=== PATIENT | female | born 1980 | race Caucasian/White ===

== ENCOUNTER 2023-11-11 01:33 | Day surgery (SDC) | payer OTHER, SELFPAY ==
[2023-10-30 14:12] VITALS: BMI 62.1
--- NOTE | 2023-11-08 09:47 | SUR.PREOP ---
Patient called regarding upcoming procedure. Reviewed preop instructions, appointment times, and procedure prep.
[2023-11-11 10:43] VITALS: BP 152/80; PULSE 105; RESP 18; TEMP 36.2; O2SAT 100
--- NOTE | 2023-11-11 11:05 | PM.HPGS ---
History of Present Illness History of Present Illness Consent: Risks, benefits, and alternatives have been discussed and questions answered. Patient agrees to proceed with procedure. Chief complaint: Iron Deficiency Anemia,Diarrhea,Dysphagia,GERD Narrative: Jeromy Gandara is a 43 year old female with bronwyn, never had scopes, denies overt gib, also chronic diarrhea. Had colonoscopy about 10 years ago for IBS , never had egd Review of Systems Review of Systems: All systems reviewed & are unremarkable except as noted in HPI and below PMFSH Past Medical History Medical History (Updated 08/01/23 @ 15:14 by Annita Perez, ROLANDO) Anxiety Asthma Dysphagia GERD (gastroesophageal reflux disease) Hypertension BRONWYN (iron deficiency anemia) Intermittent diarrhea Obesity Type 2 diabetes mellitus Family History Family History (Updated 08/01/23 @ 13:54 by Rosanna Milian MA) Mother Diabetes mellitus Father Acute myocardial infarction Social History Social History (Updated 08/01/23 @ 13:55 by Rosanna Milian MA) Smoking status: Never smoker Alcohol intake: never Substance use: current Substance use type: marijuana Other substance usage details: SMOKE & GUMMIES Living arrangements: alone Spiritual care concerns: No Meds Home Medications and Allergies Home Medications Medication Instructions Recorded Confirmed Type escitalopram oxalate 5 mg tablet 5 mg PO DAILY 08/01/23 10/30/23 History fexofenadine 180 mg tablet 180 mg PO DAILY 08/01/23 10/30/23 History (Elysia Allergy) fluticasone furoate 200 1 inh inhalation DAILY 08/01/23 10/30/23 History mcg-vilanterol 25 mcg/dose inhalation powder (Breo Ellipta) lisinopril 10 mg tablet 20 mg PO DAILY 08/01/23 10/30/23 History metformin 500 mg tablet 1,000 mg PO BID 08/01/23 10/30/23 History norethindrone-ethinyl estradiol 1 tablet PO DAILY 08/01/23 10/30/23 History triphasic 0.5/1/0.5 mg-35 mcg tablet omeprazole 40 mg capsule,delayed 40 mg PO DAILY 08/01/23 10/30/23 History release tirzepatide 5 mg/0.5 mL 5 mg subcut WEEKLY 08/01/23 10/30/23 History subcutaneous pen injector (Mounjaro) Allergies Allergy/AdvReac Type Severity Reaction Status Date / Time niacin Allergy Mild hives Verified 11/11/23 10:43 naproxen [From EC-Naproxen] Allergy Unknown Unknown Verified 11/11/23 10:43 Sulfa (Sulfonamide Allergy Unknown Unknown Verified 11/11/23 10:43 Antibiotics) Exam Const: General: comfortable and no acute distress HENMT: Face/Nose/Sinus: Normal nares present Eyes: General: appearance normal, both eyes and all related structures Neck: Neck: no JVD Resp: Auscultation: clear to auscultation bilaterally Cardio: Rate: regular rate Rhythm: regular rhythm GI: Inspection: non-distended GI Palp: Yes Soft to palpation Skin: General skin exam: normal color Neuro: General: gait normal Speech: normal speech Extrem: General: normal to inspection Psych: Mental Status: mental status grossly normal Assessment and Plan Assessment and plan (1) BRONWYN (iron deficiency anemia): Code(s): D50.9 - Iron deficiency anemia, unspecified Status: Acute Assessment and Plan: egd and colonoscopy (2) Intermittent diarrhea: Code(s): R19.7 - Diarrhea, unspecified Status: Acute
[2023-11-11 11:08] LABS: Glucose Point of Care 108 mg/dl (65-105)
[2023-11-11] MEDS: LACTATED RINGERS 1,000 ML 150 ML IV CONT (11:11)
--- NOTE | 2023-11-11 11:11 | WPDANESEPPF ---
Anes - Initial Pre Proc Eval Procedure: Operation Date: 11/11/23 11:30 Proposed Procedures p Esophagogastroduodenoscopy & Colonoscopy - Romie May MD Date/Time: 11/11/23 11:11 Surgeon: Romie May MD Pre Op Diagnosis: Iron Deficiency Anemia,Diarrhea,Dysphagia,GERD Patient Data Age: 43 Gender: F Height: 1.6 m Weight: 159 kg Allergies Allergy/AdvReac Type Severity Reaction Status Date / Time niacin Allergy Mild hives Verified 11/11/23 10:43 naproxen [From EC-Naproxen] Allergy Unknown Unknown Verified 11/11/23 10:43 Sulfa (Sulfonamide Allergy Unknown Unknown Verified 11/11/23 10:43 Antibiotics) Home Medications Medication Instructions Recorded Confirmed Type escitalopram oxalate 5 mg tablet 5 mg PO DAILY 08/01/23 10/30/23 History fexofenadine 180 mg tablet 180 mg PO DAILY 08/01/23 10/30/23 History (Elysia Allergy) fluticasone furoate 200 1 inh inhalation DAILY 08/01/23 10/30/23 History mcg-vilanterol 25 mcg/dose inhalation powder (Breo Ellipta) lisinopril 10 mg tablet 20 mg PO DAILY 08/01/23 10/30/23 History metformin 500 mg tablet 1,000 mg PO BID 08/01/23 10/30/23 History norethindrone-ethinyl estradiol 1 tablet PO DAILY 08/01/23 10/30/23 History triphasic 0.5/1/0.5 mg-35 mcg tablet omeprazole 40 mg capsule,delayed 40 mg PO DAILY 08/01/23 10/30/23 History release tirzepatide 5 mg/0.5 mL 5 mg subcut WEEKLY 08/01/23 10/30/23 History subcutaneous pen injector (Mounjaro) Laboratory Tests 11/11/23 11/11/23 11:04 11:06 POC Capillary Glucose 108 H mg/dl (65-105) Beta HCG, Quant Pending Patient hx anesthesia problems: none Family hx anesthesia problems: none Results Review: All pre-operative results and documents have been reviewed as part of the pre-operative evaluation. [facility] Past Medical History Medical History (Updated 08/01/23 @ 15:14 by Annita Perez APRN) Anxiety Asthma Dysphagia GERD (gastroesophageal reflux disease) Hypertension QI (iron deficiency anemia) Intermittent diarrhea Obesity Type 2 diabetes mellitus Family History Family History (Updated 08/01/23 @ 13:54 by Rosanna Milian MA) Mother Diabetes mellitus Father Acute myocardial infarction Social History Social History (Updated 08/01/23 @ 13:55 by Rosanna Milian MA) Smoking status: Never smoker Alcohol intake: never Substance use: current Substance use type: marijuana Other substance usage details: SMOKE & GUMMIES Living arrangements: alone Spiritual care concerns: No Anes - Eval Final PreProcedure Day of Procedure 11/11/23 11:11 Patient weight: super morbidly obese Heart: regular rate and rhythm Lungs: clear to auscultation Airway: Mallampati scale class III Neurological: alert and oriented Last oral intake: >/= 8 hours ASA classification: III Emergent: no Anesthetic plan: proceed Anesthesia type and monitoring: general GIVS and standard monitoring Results Review: All pre-operative results and documents have been reviewed as part of the pre-operative evaluation. Informed Consent: The patient's anesthetic plan and its attendant risks and benefits were discussed with the patient/family/POA. Questions were solicited and answers provided to the satisfaction of the patient/family/POA.
[2023-11-11 11:39] LABS: Beta HCG Quantitative < 2.39 mIU/ML
[2023-11-11 13:35] VITALS: BP 107/48; PULSE 108; RESP 19; O2SAT 97
[2023-11-11 13:45] VITALS: BP 118/60; PULSE 112; RESP 27; O2SAT 100
[2023-11-11 13:55] VITALS: BP 133/76; PULSE 104; RESP 16; O2SAT 100
--- NOTE | 2023-11-11 14:19 | SUR.OPER ---
EGD START 1315, END 1319 COLONOSCOPY START 1323, END 1332
== END 2023-11-11 14:00 | disposition home or self-care (01) ==
PROVIDERS: Anesthesiology; Visit Provider Internal Medicine Gastroenterology
PROC: 0DJ08ZZ Inspection of Upper Intestinal Tract, Via Natural or Artificial Opening Endoscopic (ICD-10-PCS; CPT 43235; principal; 2023-11-11 11:30)
DX: D50.9 Iron deficiency anemia, unspecified (principal); D12.2 Benign neoplasm of ascending colon; D12.5 Benign neoplasm of sigmoid colon; K44.9 Diaphragmatic hernia without obstruction or gangrene; K21.9 Gastro-esophageal reflux disease without esophagitis; F41.9 Anxiety disorder, unspecified; J45.909 Unspecified asthma, uncomplicated; I10 Essential (primary) hypertension; E11.9 Type 2 diabetes mellitus without complications; F12.90 Cannabis use, unspecified, uncomplicated; E66.01 Morbid (severe) obesity due to excess calories; Z68.44 Body mass index [BMI] 60.0-69.9, adult; Z79.51 Long term (current) use of inhaled steroids; Z79.84 Long term (current) use of oral hypoglycemic drugs; Z79.85 Long-term (current) use of injectable non-insulin antidiabetic drugs; Z82.49 Family history of ischemic heart disease and other diseases of the circulatory system
CPT/HCPCS: 43239; 45385; 45380; 36415; 82948; 84702; 88305; J1596; J2704; J7120